=== PATIENT | female | born 1970 | race Hispanic/Latino ===

== ENCOUNTER 2018-04-06 10:34 | Outpatient (CLI) | payer OTHER | END 2018-04-06 10:35 | disposition home or self-care (01) | LOC: BICMAMMO 10:34 | PROVIDERS: ATTEND Internal Medicine Hematology & Oncology | DX: Z08 Encounter for follow-up examination after completed treatment for malignant neoplasm (principal); Z85.3 Personal history of malignant neoplasm of breast | CPT/HCPCS: 77066; G0279 ==

== ENCOUNTER 2018-10-12 13:57 | Outpatient (CLI) | payer OTHER ==
--- NOTE | 2018-10-12 15:28 | BD ---
DEXA BONE DENSITY STUDY: HISTORY: Breast cancer. Patient is on anastrozole FINDINGS: Lumbar Spine: BMD (g/cm2) L1 0.895 T-Score: -0.9 L2 0.963 T-Score: -0.6 L3 0.923 T-Score: -1.5 L4 0.878 T-Score: -1.7 L1-L4 0.914 T-Score: -1.2 Femoral Neck: 0.819 T-Score: -0.3 Total Femur: 1.004 T-Score: +0.5 POS: [facility]
== END 2018-10-12 13:58 | disposition home or self-care (01) ==
LOC: BICMAMMO 13:57
PROVIDERS: ATTEND Internal Medicine Hematology & Oncology
DX: Z13.820 Encounter for screening for osteoporosis (principal); C50.919 Malignant neoplasm of unspecified site of unspecified female breast; T38.6X5A Adverse effect of antigonadotrophins, antiestrogens, antiandrogens, not elsewhere classified, initial encounter; M85.88 Other specified disorders of bone density and structure, other site
CPT/HCPCS: 77080

== ENCOUNTER 2019-04-14 07:39 | Outpatient (CLI) | payer OTHER ==
--- NOTE | 2019-04-14 08:32 | CT ---
CT of the abdomen and pelvis: 04/14/2019 COMPARISON: 02/10/2017 HISTORY: Breast cancer, right mid abdominal pain TECHNIQUE: Axial CT imaging at 5 mm intervals from the lung bases through the pubic symphysis with in travenous and oral contrast. Coronal reformatted imaging obtained. FINDINGS: The visualized lung bases are unremarkable. No free intraperitoneal air or fluid is seen. The liver, gallbladder, spleen, pancreas, adrenal glands, and kidneys demonstrate no acute findings. There is stable lobulation of bilateral kidneys as well as areas of mild renal cortical thinning suggesting scar. These findings are unchanged when compared to the 2017 examination. There is a very small fat-containing umbilical hernia. There is no evidence for bowel inflammatory change or bowel obstruction. The appendix is not discretely visualized. No right lower quadrant inflammatory change present. There is no lymphadenopathy noted in the abdomen or pelvis. The vascular structures of the abdomen/pelvis appear patent. Review of the osseous structures demonstrates no worrisome lytic or blastic bone lesions. IMPRESSION: No acute findings within the abdomen/pelvis.
[2019-04-14] MEDS ORDERED: Iopamidol 370 76% 100 ML VIAL ONE (09:00)
== END 2019-04-14 07:40 | disposition home or self-care (01) ==
LOC: SCSCT 07:39
PROVIDERS: ATTEND Internal Medicine Hematology & Oncology
DX: C50.412 Malignant neoplasm of upper-outer quadrant of left female breast (principal); R10.11 Right upper quadrant pain
CPT/HCPCS: 74177; Q9967

== ENCOUNTER 2019-04-18 13:46 | Outpatient (CLI) | payer OTHER ==
--- NOTE | 2019-04-18 15:14 | MMO ---
Bilateral MAMMO Bilat Diag [facility]. CLINICAL HISTORY: Patient is 48 years old and is seen for diagnostic exam. The patient has no family history of breast cancer. The patient has a history of malignant (generic) in the left breast 2017. The patient has a history of right Stereotatic Biopsy in 2013 - benign and left Lumpectomy in 2017 - malignant. VIEWS: The views performed were: bilateral craniocaudal with tomosynthesis; bilateral mediolateral oblique with tomosynthesis; and bilateral mediolateral with tomosynthesis. FILMS COMPARED: The present examination has been compared to prior imaging studies performed at [place] on 04/06/2018. MAMMOGRAM FINDINGS: There are scattered fibroglandular densities. There is a post-surgical scar seen in the left breast. Finding remains unchanged from the prior study. There are no suspicious masses, suspicious calcifications, or new areas of architectural distortion. IMPRESSION: THERE IS NO MAMMOGRAPHIC EVIDENCE OF MALIGNANCY. A ROUTINE FOLLOW-UP MAMMOGRAM IN 1 YEAR IS RECOMMENDED. THE RESULTS OF THIS EXAM WERE SENT TO THE PATIENT. ACR BI-RADS Category 2 - Benign finding MAMMOGRAPHY NOTE: 1. A negative mammogram report should not delay a biopsy if a dominant of clinically suspicious mass is present. 2. Approximately 10% to 15% of breast cancers are not detected by mammography. 3. Adenosis and dense breasts may obscure an underlying neoplasm. Reported by: DANY LUEVANO MD Electonically Signed: [id number]
== END 2019-04-18 13:47 | disposition home or self-care (01) ==
LOC: BICMAMMO 13:46
PROVIDERS: ATTEND Internal Medicine Hematology & Oncology
DX: Z08 Encounter for follow-up examination after completed treatment for malignant neoplasm (principal); Z85.3 Personal history of malignant neoplasm of breast
CPT/HCPCS: 77066; G0279

== ENCOUNTER 2019-10-16 10:59 | Outpatient (CLI) | payer OTHER ==
--- NOTE | 2019-10-16 11:39 | BD ---
DICTATION WAS CUT OFF POS: [facility]
--- NOTE | 2019-10-17 07:32 | BD ---
DEXA BONE DENSITY SCAN: DATE: 10/16/2019. COMPARISON: 10/12/2018. HISTORY: Postmenopausal female undergoing screening for osteoporosis. Lumbar Spine: BMD (g/cm2) L1 0.914 T-Score: -0.7 Previous: -0.9 L2 0.950 T-Score: -0.7 Previous: -0.6 L3 0.915 T-Score: -1.5 Previous: -1.5 L4 0.844 T-Score: -2.0 Previous: -1.7 L1-L4 0.904 T-Score: -1.3 Previous: -1.2 Femoral Neck: 0.765 T-Score: -0.8 Previous: -0.3 Total Femur: 0.958 T-Score: 0.1 Previous: 0.5 Since the prior examination, bone mineral density has decreased by 1% within the lumbar spine and by 4.8% within the proximal femur. FRAX-WHO fractures risk assessment tool reports a 10-year fracture risk at 7.3% for major osteoporoti c fracture and 0.1% for hip fracture in an untreated patient IMPRESSION: There is osteopenia within the lumbar spine correlating with a moderately increased risk for fracture . There is normal bone mineral density within the proximal femur. Transcribed Date/Time: 10/16/2019 3:36 PM
== END 2019-10-16 11:00 | disposition home or self-care (01) ==
LOC: BICMAMMO 10:59
PROVIDERS: ATTEND Internal Medicine Hematology & Oncology
DX: Z13.820 Encounter for screening for osteoporosis (principal); Z78.0 Asymptomatic menopausal state; Z85.9 Personal history of malignant neoplasm, unspecified; M85.88 Other specified disorders of bone density and structure, other site
CPT/HCPCS: 77080

== ENCOUNTER 2020-04-23 10:53 | Outpatient (CLI) | payer OTHER ==
--- NOTE | 2020-04-23 11:20 | MMO ---
Bilateral MAMMO Bilat Diag [facility]. CLINICAL HISTORY: Patient is 49 years old and is seen for diagnostic exam. The patient has no family history of breast cancer. The patient has a history of malignant (generic) in the left breast 2017. The patient has a history of right Stereotatic Biopsy in 2013 - benign and left Lumpectomy in 2017 - malignant. VIEWS: The views performed were: bilateral craniocaudal with tomosynthesis; bilateral mediolateral oblique with tomosynthesis; and bilateral mediolateral with tomosynthesis. FILMS COMPARED: The present examination has been compared to prior imaging studies performed at [place] on 04/06/2018 and 04/18/2019. This study has been interpreted with the assistance of computer-aided detection. MAMMOGRAM FINDINGS: There are scattered fibroglandular densities. Benign calcifications are noted bilaterally. There are stable left post-operative changes. There are no suspicious masses, suspicious calcifications, or new areas of architectural distortion. IMPRESSION: THERE IS NO MAMMOGRAPHIC EVIDENCE OF MALIGNANCY. A ROUTINE FOLLOW-UP MAMMOGRAM IN 1 YEAR IS RECOMMENDED. THE RESULTS OF THIS EXAM WERE SENT TO THE PATIENT. ACR BI-RADS Category 2 - Benign finding MAMMOGRAPHY NOTE: 1. A negative mammogram report should not delay a biopsy if a dominant of clinically suspicious mass is present. 2. Approximately 10% to 15% of breast cancers are not detected by mammography. 3. Adenosis and dense breasts may obscure an underlying neoplasm. Reported by: JASS GONZALEZ MD Electonically Signed: [id number]
== END 2020-04-23 10:54 | disposition home or self-care (01) ==
LOC: BICMAMMO 10:53
PROVIDERS: ATTEND Physician Assistant
DX: Z08 Encounter for follow-up examination after completed treatment for malignant neoplasm (principal); Z85.3 Personal history of malignant neoplasm of breast
CPT/HCPCS: 77066; G0279

== ENCOUNTER 2020-11-14 10:55 | Outpatient (CLI) | payer OTHER | END 2020-11-14 10:56 | disposition home or self-care (01) | LOC: BICMAMMO 10:55 | PROVIDERS: ATTEND Internal Medicine Hematology & Oncology | DX: Z13.820 Encounter for screening for osteoporosis (principal); Z78.0 Asymptomatic menopausal state; T38.6X5A Adverse effect of antigonadotrophins, antiestrogens, antiandrogens, not elsewhere classified, initial encounter | CPT/HCPCS: 77080 ==

== ENCOUNTER 2021-05-07 10:27 | Outpatient (CLI) | payer OTHER | END 2021-05-07 10:28 | disposition home or self-care (01) | LOC: BICMAMMO 10:27 | PROVIDERS: ATTEND Internal Medicine Hematology & Oncology | DX: Z08 Encounter for follow-up examination after completed treatment for malignant neoplasm (principal); Z85.3 Personal history of malignant neoplasm of breast | CPT/HCPCS: 77066; G0279 ==

== ENCOUNTER 2022-05-08 12:59 | Outpatient (CLI) | payer OTHER | END 2022-05-08 13:00 | disposition home or self-care (01) | LOC: BICMAMMO 12:59 | PROVIDERS: ATTEND Internal Medicine Hematology & Oncology | DX: Z08 Encounter for follow-up examination after completed treatment for malignant neoplasm (principal); T38.6X5A Adverse effect of antigonadotrophins, antiestrogens, antiandrogens, not elsewhere classified, initial encounter; Z80.3 Family history of malignant neoplasm of breast | CPT/HCPCS: 77066; G0279 ==

== ENCOUNTER 2023-02-04 14:16 | Outpatient (CLI) | payer OTHER | END 2023-02-04 14:17 | disposition home or self-care (01) | LOC: BICULT 14:16 | PROVIDERS: ATTEND Physician Assistant | DX: R22.40 Localized swelling, mass and lump, unspecified lower limb (principal); M25.562 Pain in left knee; Z91.89 Other specified personal risk factors, not elsewhere classified | CPT/HCPCS: 76882; 76999 ==

== ENCOUNTER 2023-07-02 12:50 | Outpatient (CLI) | payer OTHER | END 2023-07-02 12:51 | disposition home or self-care (01) | LOC: BICMAMMO 12:50 | PROVIDERS: ATTEND Internal Medicine Hematology & Oncology | DX: Z12.31 Encounter for screening mammogram for malignant neoplasm of breast (principal); Z85.3 Personal history of malignant neoplasm of breast; Z91.89 Other specified personal risk factors, not elsewhere classified; Z98.890 Other specified postprocedural states | CPT/HCPCS: 77063; 77067 ==

== ENCOUNTER 2025-08-02 14:44 | Outpatient (CLI) | payer OTHER | END 2025-08-02 14:45 | disposition home or self-care (01) | LOC: SCSBT 14:44 | PROVIDERS: ATTEND Physician Assistant | DX: Z13.820 Encounter for screening for osteoporosis (principal) | CPT/HCPCS: 77080 ==